=== PATIENT | female | born 1970 | race Caucasian/White ===

== ENCOUNTER 2016-08-12 08:13 | Emergency (ER) | payer BC ==
[2016-08-12 08:45] VITALS: BP 111/73; PULSE 72; RESP 16; TEMP 98.2; O2SAT 98
--- NOTE | 2016-08-12 09:17 | UCPHY ---
H & P Time Seen by Provider: 08/12/16 09:03 Patient Type: Established HPI/ROS: This patient presents with a chief complaint of sore throat and congestion which began 2 days ago. She has had mild cough as well but no fever, ear pain, shortness of breath or chest pain. She has had fatigue and her ears feel plugged. Her appetite has been diminished. Smoking Status: Former smoker Physical Exam: GENERAL: Well-appearing, well-nourished and in no acute distress. HEAD: Atraumatic, normocephalic. EYES: sclera anicteric, conjunctiva are normal. ENT: TMs normal, nares patent, oropharynx clear without exudates. Moist mucous membranes. No tenderness to percussion over the facial sinuses. NECK: Normal range of motion, supple without lymphadenopathy or JVD. LUNGS: Breath sounds clear to auscultation bilaterally and equal. No wheezes rales or rhonchi. HEART: Regular rate and rhythm EXTREMITIES: Normal range of motion, NEUROLOGICAL: Cranial nerves II through XII grossly intact. Normal speech, normal gait. PSYCH: Normal mood, normal affect. SKIN: Warm, dry, normal turgor, no visible rashes or lesions. Constitutional: Initial Vital Signs Temperature (C) 36.8 C 08/12/16 08:41 Heart Rate 72 08/12/16 08:41 Respiratory Rate 16 08/12/16 08:41 Blood Pressure 111/73 08/12/16 08:41 O2 Sat (%) 98 08/12/16 08:41 O2 Delivery Mode Room Air Allergies/Adverse Reactions: Penicillins Allergy (Unknown, Verified 08/12/16 08:44) Unknown Home Medications: Medication Instructions Recorded Progesterone Bc Pill 08/12/16 Medical Decision Making Differential Diagnosis: I find nothing that would suggest that this patient has a bacterial infection including strep throat, otitis media, sinusitis or pneumonia. - Data Points Laboratory Results: 08/12/16 08/12/16 Unknown 08:35 Group A Strep Screen NEGATIVE (NEGATIVE) Group A Strep DNA Pending Departure - Departure Disposition: Home, Routine, Self-Care Clinical Impression: Acute viral syndrome Condition: Good Instructions: Viral Syndrome (ED), Upper Respiratory Infection (ED) Additional Instructions: If your symptoms have not resolved in another week you should be re-evaluated. Cause for concern would be fever, shortness of breath, chest pain or generally worsening symptoms. Keep herself well hydrated but do not force herself to eat. Activity as tolerated. Adult Pain & Fever Control: We recommend Acetaminophen (Tylenol) and Ibuprofen (Motrin, Advil) for pain and fever control. When fever is high or pain severe, both drugs can be used at the same time, but at different intervals. Please note the time differences. Your dose is: Acetaminophen [650]mg every 4 to 6 hours ibuprofen [600]mg every [6] hours with food OR naproxen Sodium (Aleve) [440]mg every 12 hours. Note: do not take Acetaminophen with Hydrocodone (Vicodin, Lortab) or Oxycodone (Percocet). These medications also contain Acetaminophen. No more than 3000 mg of Acetaminophen should be taken in 24 hours (for an adult) . The maximal dose of ibuprofen that it is safe in a 24-hour period is 2400 mg. You may take 400 mg every 4 hours, 600 mg every 6 hours or 800 mg every 8 hours safely. Referrals: NONE *PRIMARY CARE P,. [Primary Care Provider] - As per Instructions - PQRS PQRS Measurement: Not applicable
== END 2016-08-12 09:20 | disposition home or self-care (01) ==
LOC: CED 08:13
DX: B34.9 Viral infection, unspecified (principal); J06.9 Acute upper respiratory infection, unspecified; H93.90 Unspecified disorder of ear, unspecified ear; Z87.891 Personal history of nicotine dependence
CPT/HCPCS: 87880-PO; G0463-PO

== ENCOUNTER 2016-09-27 10:11 | Day surgery (SDC) | payer BC ==
[2016-09-27] MEDS ORDERED: LIDOCAINE 1% 30 ML SDV ONE (10:28)
[2016-09-27] MEDS ORDERED: SILVER NITRATE APPLICATOR 1 APPL TP ONE (10:28)
[2016-09-27] MEDS ORDERED: LIDOCAINE 1% 2 ML INJ ONE (10:35)
[2016-09-27] MEDS ORDERED: fentaNYL 100 MCG/2 ML INJ ONE (11:02)
[2016-09-27] MEDS ORDERED: PROPOFOL 200 MG/20 ML VIAL ONE (11:05)
[2016-09-27] MEDS ORDERED: MIDAZOLAM 2 MG/2 ML VIAL ONE (12:25)
--- NOTE | 2016-09-27 13:31 | GOP ---
[f rep st] OPERATIVE REPORT DATE OF OPERATION: 09/27/2016 SURGEON: Rin Barnes MD ASSOCIATE MUSIC PROFESSOR: None. ANESTHESIA: LMA. PREOPERATIVE DIAGNOSIS: Menorrhagia. POSTOPERATIVE DIAGNOSIS: Menorrhagia. PROCEDURE PERFORMED: Hysteroscopy, endometrial ablation. FINDINGS: Normal uterine cavity with 2 small endometrial polyps. Uterine length was 5 cm. Uterine width was 4.5 cm. SPECIMENS: None. INDICATIONS: The patient is a 46-year-old female who had longstanding history of menorrhagia which did not improve on medical management and desired surgical management. DESCRIPTION OF PROCEDURE: The patient was taken to the operating room. She was prepped and draped in normal sterile fashion in the high dorsal lithotomy position. The patient emptied her bladder prior to the procedure. A surgical time-out was performed verifying the patient's name, date of , planned procedure, and site. A bivalve speculum was placed in the patient's vagina. The anterior aspect of the cervix was grasped with a single-toothed tenaculum. The cervix was dilated to 5 mm. The hysteroscope was placed into the uterine cavity, having 2 small endometrial polyps. The patient did receive a paracervical block of 1% lidocaine. The hysteroscope was then removed. The NovaSure device was placed into the uterine cavity. The uterine length was 5 cm. The width was 4.5 cm. The cavity integrity assessment was performed to ensure no perforations, which there was none. The patient had endometrial ablation for 1 minute 40 seconds with power of 124. The NovaSure endometrial ablation device was removed. The hysteroscope was placed into the uterine cavity again and ablation of the endometrial lining was noted. The hysteroscope was removed. The fluid deficit was 60 mL. All counts were correct x2. The patient was stable to the recovery room. COMPLICATIONS: None. OUTCOME: Stable to recovery room. /[id number]/MODL MTDD
== END 2016-09-27 14:30 | disposition home or self-care (01) ==
LOC: FSGY 10:11
PROVIDERS: ATTEND Obstetrics & Gynecology
PROC: 0U5B8ZZ Destruction of Endometrium, Via Natural or Artificial Opening Endoscopic (ICD-10-PCS; principal; 2016-09-27 11:45)
DX: N84.0 Polyp of corpus uteri (principal); N92.0 Excessive and frequent menstruation with regular cycle
CPT/HCPCS: J2250; J2704; J3010